=== PATIENT | female | born 1945 | race Caucasian/White ===

== ENCOUNTER 2017-11-12 01:13 | Outpatient (CLI) | payer MEDICARE, BC, SELFPAY ==
--- NOTE | 2017-11-12 17:50 | DI.RAD_ITS ---
SYMPTOM/DIAGNOSIS: BILAT LEG PAIN, LT HIP PAIN, M79.604 BILATERAL HIPS AND PELVIS: Comparison is made with 09/01/17. There is mild narrowing of the joint spaces of the hips bilaterally. The hip joints are otherwise well maintained. The bones are intact and normally mineralized. The sacroiliac joints and symphysis pubis appear intact and unremarkable. Stable degenerative changes are seen in the lower lumbar spine. The soft tissues are unremarkable. IMPRESSION: Bilateral narrowing of the joint spaces of the hips. Stable degenerative changes seen in the lower lumbar spine.
== END 2017-11-12 01:33 ==
PROVIDERS: PCP Family Medicine; Visit Provider Family Medicine
DX: M79.604 Pain in right leg (principal); M79.605 Pain in left leg; M25.552 Pain in left hip; M47.816 Spondylosis without myelopathy or radiculopathy, lumbar region
CPT/HCPCS: 73521

== ENCOUNTER 2017-12-16 01:03 | Outpatient (CLI) | payer MEDICARE, BC, SELFPAY ==
--- NOTE | 2017-12-16 14:42 | DI.MRI_ITS ---
SYMPTOMS/DIAGNOSIS: LOW BACK PAIN AND BILATERAL LEG PAIN, M79.604, M79.605 LUMBAR SPINE: Routine noncontrast examination was performed. The conus medullaris has a normal location. At L5-S1, there is disc desiccation. There is a very small central disc herniation. No significant central spinal canal or neural foraminal stenosis is seen. At L4-L5, there is disc desiccation. There is a diffuse disc bulge. There are hypertrophic changes of the facets and ligamentum flavum, causing moderately severe central spinal canal stenosis. Mild bilateral neural foraminal narrowing is seen, but no compression of the exiting nerve roots is noted. At L3-L4, there is disc desiccation. There is a diffuse disc bulge. There are hypertrophic changes of the facets and ligamentum flavum, causing marked central spinal canal stenosis. There is moderate bilateral neural foraminal stenosis present with minimal impingement upon the exiting nerve roots bilaterally. At L2-L3, there is a diffuse disc bulge. There are hypertrophic changes of the facets. No significant central spinal canal stenosis is seen. There is mild narrowing of the neural foramina bilaterally, but no compression of the exiting nerve roots is seen. Small osteophytes and mild endplate degenerative signal changes are noted. At L1-L2, there is a diffuse disc bulge. Mild narrowing of the central spinal canal is noted. No significant neural foraminal stenosis is present. Incidental note is made of right renal cysts. IMPRESSION: Multilevel degenerative changes in the lumbar spine resulting multilevel central spinal canal neural foraminal stenosis. The findings are most marked at L3-L4 and L4-L5.
== END 2017-12-16 01:23 ==
PROVIDERS: PCP Family Medicine; Visit Provider Family Medicine
DX: M79.604 Pain in right leg (principal); M79.605 Pain in left leg; M54.5 Low back pain; M51.27 Other intervertebral disc displacement, lumbosacral region; M48.07 Spinal stenosis, lumbosacral region
CPT/HCPCS: 72148

== ENCOUNTER 2018-04-02 00:33 | Outpatient (CLI) | payer MEDICARE, BC, SELFPAY ==
--- NOTE | 2018-04-02 08:55 | DI.MAMMO_ITS ---
SYMPTOM/DIAGNOSIS: SCREENING, Z12.31 MAMMOGRAMS: Mammograms were interpreted according to the usual protocol including computer analysis with CAD system, tomosynthesis and C view imaging. The breast tissue is of moderate radiodensity. There is no dominant mass. There are no suspicious calcifications. There is however a question regarding interval development of one or possibly two small areas of nodularity in the lateral portion of the left breast and further evaluation with craniocaudad compression spot films and ultrasound is recommended to rule out the possibility of malignancy. IMPRESSION: Category 0. Breast density, category B. Further evaluation with compression spot films and ultrasound. SA ASSESSMENT OF FINDINGS: Incomplete: Needs additional imaging evaluation. Category 0. Patient will receive a letter notifying them of these results. BI-RADS category B. There are scattered areas of fibroglandular density.
== END 2018-04-02 00:53 ==
PROVIDERS: PCP Family Medicine; Visit Provider Family Medicine
DX: Z12.31 Encounter for screening mammogram for malignant neoplasm of breast (principal); R92.8 Other abnormal and inconclusive findings on diagnostic imaging of breast
CPT/HCPCS: 77063; 77067

== ENCOUNTER 2018-04-09 01:25 | Outpatient (CLI) | payer MEDICARE, BC, SELFPAY ==
--- NOTE | 2018-04-09 10:42 | DI.MAMMO_ITS ---
SYMPTOM/DIAGNOSIS: F/U NODULARITY ON MAMMO RIGHT BREAST ADDITIONAL VIEWS: Additional images are interpreted according to the usual protocol including tomosynthesis and 2D imaging. The exam was performed for a questioned area of nodularity in the lateral left breast on the CC view. No suspicious masses or suspicious microcalcifications are seen. IMPRESSION: Category 1B, negative mammogram. Yearly screening mammography is recommended. SA ASSESSMENT OF FINDINGS: Negative. Category 1. Patient will receive a letter notifying them of these results. BI-RADS category B. There are scattered areas of fibroglandular density.
== END 2018-04-09 01:45 ==
PROVIDERS: PCP Family Medicine; Visit Provider Family Medicine
DX: Z12.31 Encounter for screening mammogram for malignant neoplasm of breast (principal); R92.8 Other abnormal and inconclusive findings on diagnostic imaging of breast; N64.59 Other signs and symptoms in breast
CPT/HCPCS: 77063; 77067

== ENCOUNTER → 2018-06-08 08:29 | Outpatient (BNVA) | payer MEDICARE, BC, SELFPAY | PROVIDERS: PCP Family Medicine; Referring Provider Family Medicine; Visit Provider Physical Therapy Assistant | DX: Z12.11 Encounter for screening for malignant neoplasm of colon (principal); Z86.018 Personal history of other benign neoplasm; I10 Essential (primary) hypertension ==

== ENCOUNTER 2018-07-03 07:56 | Day surgery (SDC) | payer MEDICARE, BC, SELFPAY ==
[2018-07-03 08:19] VITALS: BP 146/86; PULSE 78; RESP 18; TEMP 35.9; O2SAT 98
[2018-07-03] MEDS: Lactated Ringers 1,000 ML 80 ML IV (08:39)
--- NOTE | 2018-07-03 09:58 | W.PM.ENDDOP ---
Date of service: 07/03/18 Time of Service: 10:33 Endoscopy Report DATE OF PROCEDURE: 07/03/18 PRE-OP DIAGNOSIS: serrated adnemoma w/ dysplasia POST-OP DIAGNOSIS: other (cecal mass- flat 2cm lesion. mult bx taken mild diverticuli) PROCEDURE: CE and Bx SURGEON: Yessi Alejandro ANESTHESIA: GETA ESTIMATED BLOOD LOSS: 3 PATHOLOGY: other COMPLICATIONS: None DISPOSITION: same day PREP: Miralax COLONOSCOPY RETRACTION TIME: 13 mins PROCEDURE DESCRIPTION: After informed consent was obtained the patient was taken to the procedure room and placed in a left decubitous position. Monitors were applied and a time out was done. The patients name, date of , procedure, allergies to medications and metal in their body was reviewed. The patient was then sedated. Once sedated and comfortable a rectal exam was done. External exam was ext hemorrhoids. Internal exam revealed a normal sphincter tone and no palpable masses. The scope was then introduced and retrofelexed. no internal hemorrhoids were identified. The scope was then advanced to the cecum w/ mild difficulty. The TI and appendiceal orifice were identified. The prep was good . The scope was then slowly retracted over 13 minutes back into the rectum. She has a approx 2cm mass in cecum- very flat adn not on any type of stalk. Previous bx did show dysplasia and there is concern for cancer in this lesion. Is not amendable to endoscopic removal at this time. We will see what the bx show. High concern that this is a cancerous lesion. mult bx done/specimin is retrieved. the lesion is very friable and bleeds readily. Again mild diverticular Dx w/ no sign s of bleeding or infection. The scope was removed and the patient was woken up and taken back to Same day surgery in stable condition. The patient tolerated the procedure well and there were no immediate complications. pt will f/u in office in 1 wks time
--- NOTE | 2018-07-03 10:08 | BOWEL_PTH ---
PATIENT: Kae Pederson LOC: [facility] U#:[id number] AGE/SX: 72/F ROOM: RE07/03/[address]: Yessi Alejandro : 1945 BED: DIS: 07/03/2018 SPEC #: [id number] RECD: 07/03/18 12:01 STATUS: KATIA RE #: [id number] WANG: 07/03/18 10:[address]: Yessi Alejandro DEPT: Surgical Specimen RECD BY: Shiv Hilario ENTERED: 07/03/18 12:04 SP TYPE: Bowel OTHR DR: Rowan Lopez MD, DC Tissues: 1 - BIOPSY BOWEL Procedures: GROSS AND MICRO LEVEL 4 Comments: [id number]
--- NOTE | 2018-07-03 10:39 | PDOC.DSDIS_ITS ---
Discharge Plan Disposition Patient Disposition: HOME Condition: Good Discharge Details Attending Provider: Yessi Bobby Primary Care Provider: Rowan Lopez Home Meds and New Rx's Prescriptions: Continued magnesium amino acid chelate 100 mg tablet 500 mg PO DAILY RF: 0 amlodipine [Norvasc] 5 mg tablet 5 mg PO QAM Qty: 90 RF: 4 acetaminophen [Tylenol] 325 mg tablet 650 mg PO HS PRNRF: 0 bisacodyl [Dulcolax (bisacodyl)] 5 mg tablet,delayed release (DR/EC) 5 mg PO ONCE Qty: 4 RF: 0 multivitamin 1 EACH tablet 1 ea PO DAILY RF: 0 Little Remedies Cough-Immune 0.7-3 gram/7.5 mL liquid 5 ml PO DAILY RF: 0 Discontinued polyethylene glycol 3350 17 gram/dose powder 238 g PO ONCE Qty: 238 RF: 0 aspirin [Aspirin Low-Strength] 81 MG tablet,chewable 81 mg PO DAILY PRNRF: 0 Discharge Instructions Additional Instructions: Findings: diverticular dx- mild no active bleeding/or infection polyp in cecum has grown. Bx taken. not amendable to removal secondary to size. awaiting bx results. Follow up: F/u in office w/ Dr. bobby in 1o days No ASA/NSAIDs for 2 wks Please call if you develop: fevers >101.5 Nausea or Vomiting Abdominal pain that is not transient DAY SURGERY UNIT POST COLONOSCOPY INSTRUCTIONS 1. Because there will be medication in your system for the next 24 hours, you may feel a little sleepy. Your coordination will be affected. Therefore: a. Do not drive or operate dangerous equipment for 24 hours. b. Do not drink alcohol beverages for 24 hours (not even beer). c. Plan to go home and rest for the day. 2. Generally there are no restrictions on your activity after a day or so has gone by, but you may feel a bit fatigued for a few days. 3 After you arrive home you may have a light meal and return to a normal diet as you can tolerate it without feeling sick to your stomach. 4. After surgery, you may feel pain or discomfort. This should be only transient, but if it persists please contact your doctor. 5. If there are any questions regarding the findings of your procedure, please feel free to contact your doctor. 6. If you are unable to contact your doctor with a problem, contact the [facility] at [phone]. 5. Continue all your regular medications unless directed otherwise. I understand the above instructions and have no questions. Signature of Patient or Responsible Adult Escort Date/Time Name of Responsible Adult Escort Signature of Nurse Date/Time Activity:: no heavy lifting or strenuous acitivty x 24 hrs Diet:: sm lt meals x 24 hrs Discharge Orders Discharge Orders: Discharge Order (Routine); Ordered 07/03/18 Ordered By: Yessi Bobby DS: Diagnosis Discharge Diagnosis (1) Dysplastic polyp of colon: Status: Acute (2) Diverticula of colon: Status: Acute
[2018-07-03 11:02] VITALS: BP 134/84; PULSE 70; RESP 16; TEMP 36; O2SAT 98
== END 2018-07-03 11:40 | disposition home or self-care (01) ==
PROVIDERS: PCP Family Medicine; Visit Provider Surgery
PROC: 0DJD8ZZ Inspection of Lower Intestinal Tract, Via Natural or Artificial Opening Endoscopic (ICD-10-PCS; CPT 45378; principal; 2018-07-03 10:30)
DX: Z12.11 Encounter for screening for malignant neoplasm of colon (principal); D12.0 Benign neoplasm of cecum; Z86.010 Personal history of colon polyps; I10 Essential (primary) hypertension; K21.9 Gastro-esophageal reflux disease without esophagitis
CPT/HCPCS: 45380; 88305

== ENCOUNTER → 2018-07-13 09:16 | Outpatient (BNVA) | payer MEDICARE, BC, SELFPAY | PROVIDERS: PCP Family Medicine; Referring Provider Family Medicine; Visit Provider Surgery | DX: Z48.815 Encounter for surgical aftercare following surgery on the digestive system (principal); K63.5 Polyp of colon; K59.09 Other constipation; I10 Essential (primary) hypertension | CPT/HCPCS: 99213 ==

== ENCOUNTER 2018-09-22 11:02 | Outpatient (CLI) | payer MEDICARE, BC, SELFPAY ==
[2018-09-22 12:31] LABS: ALT 31 U/L (12-78); AST 23 U/L (15-37); Albumin 3.9 g/dL (3.4-5.0); Alkaline Phosphatase 110 U/L (46-116); Anion Gap 8.1 mmol/L (3-11); BUN 11 mg/dL (7-18); Bilirubin, Total 0.6 mg/dL (0.2-1.0); CO2 30.9 mmol/L (21.0-32.0); CREATININE 0.66 mg/dL (0.55-1.02); Calcium 9.3 mg/dL (8.5-10.1); Chloride 104 mmol/L (98-107); Glucose 106 mg/dL (70-100); Magnesium 2.5 mg/dL (1.8-2.4); Potassium 4.2 mmol/L (3.5-5.1); Sodium 143 mmol/L (136-145); Total Protein 7.4 g/dL (6.4-8.2)
== END 2018-09-22 11:22 ==
PROVIDERS: PCP Family Medicine; Visit Provider Family Medicine
DX: I10 Essential (primary) hypertension (principal)
CPT/HCPCS: 36415; 80053; 83735

== ENCOUNTER 2019-05-03 01:21 | Outpatient (CLI) | payer MEDICARE, SELFPAY ==
--- NOTE | 2019-05-03 09:30 | DI.MAMMO_ITS ---
EXAM: MG MAMMO SCREENING CLINICAL HISTORY: screening, Z12.39 TECHNIQUE: Mammograms were interpreted according to the usual protocol including computer analysis w [employer] CAD system, tomosynthesis and C-view imaging. COMPARISON: March 2018 FINDINGS: Breasts are of moderate density with fairly symmetrical distribution of fibroglandular tissue. No do minant mass or clumped microcalcification is identified in either breast. Current examination is com pared with previous examinations including March 2018 and there has been no gross interval change i n appearance in comparison with previous studies. IMPRESSION: No specific evidence of malignancy at this time. Routine screening examinations are suggested at year ly intervals in this age group according to the ACS/ACR guidelines. Category 1, breast density catego ester Ordoñez.
== END 2019-05-03 01:41 ==
PROVIDERS: PCP Family Medicine; Visit Provider Family Medicine
DX: Z12.31 Encounter for screening mammogram for malignant neoplasm of breast (principal)
CPT/HCPCS: 77063; 77067

== ENCOUNTER 2019-09-28 09:33 | Outpatient (CLI) | payer MEDICARE, SELFPAY ==
[2019-09-28 13:06] LABS: ALT 28 U/L (14-59); AST 24 U/L (15-37); Albumin 3.8 g/dL (3.4-5.0); Alkaline Phosphatase 115 U/L (46-116); Anion Gap 6.9 mmol/L (3-11); BUN 10 mg/dL (7-18); Bilirubin, Total 0.6 mg/dL (0.2-1.0); CO2 29.1 mmol/L (21.0-32.0); CREATININE 0.66 mg/dL (0.55-1.02); Calcium 9.2 mg/dL (8.5-10.1); Chloride 104 mmol/L (98-107); Glucose 99 mg/dL (74-106); Potassium 4.2 mmol/L (3.5-5.1); Sodium 140 mmol/L (136-145); Total Protein 7.4 g/dL (6.4-8.2)
== END 2019-09-28 09:53 ==
PROVIDERS: PCP Family Medicine; Visit Provider Family Medicine
DX: I10 Essential (primary) hypertension (principal)
CPT/HCPCS: 36415; 80053

== ENCOUNTER 2020-04-06 02:45 | Outpatient (CLI) | payer MEDICARE, SELFPAY ==
[2020-04-06 12:33] LABS: ALT 24 U/L (14-59); AST 21 U/L (15-37); Albumin 3.8 g/dL (3.4-5.0); Alkaline Phosphatase 113 U/L (46-116); Anion Gap 4.3 mmol/L (3-11); BUN 10 mg/dL (7-18); Bilirubin, Total 0.5 mg/dL (0.2-1.0); CO2 30.7 mmol/L (21.0-32.0); CREATININE 0.7 mg/dL (0.55-1.02); Calcium 8.9 mg/dL (8.5-10.1); Chloride 105 mmol/L (98-107); Glucose 102 mg/dL (74-106); Potassium 4.3 mmol/L (3.5-5.1); Sodium 140 mmol/L (136-145); Total Protein 7.3 g/dL (6.4-8.2)
[2020-04-06 12:40] LABS: Hemoglobin A1C 5.7 % (<5.7)
== END 2020-04-06 03:05 ==
PROVIDERS: PCP Family Medicine; Visit Provider Family Medicine
DX: E11.9 Type 2 diabetes mellitus without complications (principal); I10 Essential (primary) hypertension; R63.1 Polydipsia
CPT/HCPCS: 36415; 80053; 83036

== ENCOUNTER 2020-07-11 01:00 | Outpatient (CLI) | payer MEDICARE, SELFPAY ==
--- NOTE | 2020-07-11 06:15 | DI.MAMMO_ITS ---
Exam(s) MAMMO SCREENING EXAM: MAMMO SCREENING CLINICAL HISTORY: screening,Z12.30 TECHNIQUE: Bilateral full field digital CC and MLO mammographic images were obtained with 3D tomosyn thesis and utilizing computer aided detection (CAD). COMPARISON: Available for comparison. FINDINGS: Masses/Architectural Distortion: There is no change in the 7 mm nodule in the central upper left erin st best appreciated on the MLO view. No suspicious masses are seen. No areas of architectural disto rtion are present. Microcalcifications: No suspicious pleomorphic-type are seen. Skin Thickening/Nipple Retraction: None. IMPRESSION: 1. No significant interval change with no specific features of malignancy noted. 2. Unless there is more urgent need, screening mammography is recommended, as per [place] [employer] guidelines. BI-RADS Category 2 - Benign Findings Breast Density - Category B - Scattered areas of fibroglandular density Breast density category C or D implies that the patient has dense breast tissue. Dense breast tissue is very common and is not abnormal but dense breast tissue can make it harder to find cancer on a ma mmogram. Also, dense breast tissue may increase their breast cancer risk. This information about the result of the mammogram report was provided to the patient to raise their awareness. Use this report when you speak with the patient about their risks for breast cancer, which includes their family hist ory. At that time, you may recommend for more screening tests (Ultrasound or MRI) as they might be us eful based on their risk. A negative radiographic report should not delay biopsy if a dominant or clinically suspicious mass is present. Up to ten percent of cancers are not identified on mammography. A negative report may reinforce clinical impression. Adenosis and dense breasts may obscure an underlying neoplasm. False positive reports average 6 to 10%. Patient will receive a letter notifying them of these results.
== END 2020-07-11 01:20 ==
PROVIDERS: PCP Family Medicine; Visit Provider Family Medicine
DX: Z12.31 Encounter for screening mammogram for malignant neoplasm of breast (principal)
CPT/HCPCS: 77063; 77067

== ENCOUNTER 2021-08-13 18:15 | Outpatient (CLI) | payer MEDICARE, SELFPAY ==
[2021-08-13 17:22] LABS: Hemoglobin A1C 5.6 % (<5.7)
[2021-08-13 18:01] LABS: ALT 23 U/L (14-59); AST 19 U/L (15-37); Albumin 3.8 g/dL (3.4-5.0); Alkaline Phosphatase 132 U/L (46-116); Anion Gap 8.2 mmol/L (3-11); BUN 11 mg/dL (7-18); Bilirubin, Total 0.3 mg/dL (0.2-1.0); CO2 30.8 mmol/L (21.0-32.0); CREATININE 0.7 mg/dL (0.55-1.02); Chloride 102 mmol/L (98-107); Glucose 86 mg/dL (74-106); Sodium 141 mmol/L (136-145); Total Protein 7.5 g/dL (6.4-8.2)
== END 2021-08-13 18:16 | disposition home or self-care (01) ==
LOC: LBO 18:16
PROVIDERS: PCP Family Medicine; Visit Provider Family Medicine
DX: E11.9 Type 2 diabetes mellitus without complications (principal); I10 Essential (primary) hypertension
CPT/HCPCS: 36415; 80053; 83036

== ENCOUNTER 2022-04-25 00:22 | Outpatient (CLI) | payer MEDICARE, SELFPAY ==
--- NOTE | 2022-04-25 07:00 | DI.MAMMO_ITS ---
Exam(s) MAMMO SCREENING EXAM: MAMMO SCREENING CLINICAL HISTORY: screening,z12.39. TECHNIQUE: Bilateral full field digital CC and MLO mammographic images were obtained with 3D tomosyn thesis and utilizing computer aided detection (CAD). COMPARISON: Prior mammograms dating back to 2013 were reviewed, most recent being July 2020. FINDINGS: There are no new significant findings in the right breast. In the left breast the previously described small benign-appearing nodule again noted, unchanged from 2014 therefore benign. There is slight prominence of retroareolar ducts again noted on the left side. However, there is sli ght increase in microcalcifications associated with this duct, located approximately 4 cm in from the nipple. Additional imaging required. There is no significant architectural distortion nor skin thickening-retraction. IMPRESSION: 1. No radiographic evidence of malignancy in the right breast. 2. Left breast findings as above. Recommend spot compression 2D and 3D views of the retroareolar re gion as well as breast ultrasound. BI-RADS Category 0 - Assessment Incomplete: Need additional imaging evaluation Breast Density - Category B - Scattered areas of fibroglandular density Breast density Category C or D implies that the patient has dense breast tissue. Dense breast tissue can make it harder to find cancer on a mammogram. Dense breast tissue is also associated with an incr eased risk of breast cancer. This information about the result of the mammogram report was provided to the patient to raise their awareness. Use this report when you speak with the patient about their risks for breast cancer, which includes their family history. At that time, you may recommend additional screening tests (Ultrasoun d or MRI) as these tests may add significant information. A negative radiographic report should not delay biopsy if a dominant or clinically suspicious mass is present. Up to ten percent of cancers are not identified on mammography. A negative report may reinforce clinical impression. Adenosis and dense breasts may obscure an underlying neoplasm. False positive reports average 6 to 10%. Patient will receive a letter notifying them of these results.
== END 2022-04-25 00:42 ==
LOC: DI 00:22
PROVIDERS: PCP Family Medicine; Visit Provider Family Medicine
DX: Z12.31 Encounter for screening mammogram for malignant neoplasm of breast (principal)
CPT/HCPCS: 77063; 77067

== ENCOUNTER 2022-04-26 00:30 | Outpatient (CLI) | payer MEDICARE, SELFPAY ==
--- NOTE | 2022-04-26 | DI.MAMMO_ITS ---
Exam(s) MG MAMMO SCREEN CALL BACK UNI US BREAST LT LIMITED EXAM: MG MAMMO SCREEN CALL BACK UNI CLINICAL HISTORY: F/U ABNL MAMMO,04/25,PROMINENCE DUCTS,INCRASE IN CALCIFICATIONS. TECHNIQUE: Craniocaudal and mediolateral oblique spot compression magnification digital Mammography views of the left breast followed by left breast ultrasound. COMPARISON: MG L. SPOT - SAME DAY DIGITAL from 04/09/2013 MG SCREENING JOCELYN MAMMO W/CAD DIGI from 04/09/2013 US LEFT BREAST ULTRASOUND {[id number]} from 07/20/2014 MG L. Spot - Same Day from 07/20/2014 MG Screening Bilat Mammo from 07/20/2014 MG Diagnostic Left Mammo from 01/24/2015 MG Screening Bilat Mammo from 09/05/2016 MG MG mammo screening from 04/02/2018 MG MG mammo screen call back UNI from 04/09/2018 MG MG MAMMO SCREENING from 05/03/2019 MG MG MAMMO SCREENING from 07/11/2020 MG MG MAMMO SCREENING from 04/25/2022 US US BREAST LT LIMITED from 04/26/2022 FINDINGS: Mammography/Tomosynthesis: Masses/Architectural Distortion: Stable appearance of dilated duct in the subareolar region. Microcalcifictions: Scattered coarse calcifications. No suspicious pleomorphic-type are seen. Skin Thickening/Nipple Retraction: Stable mild nipple retraction. No skin thickening. Left breast US: Echotexture: Normal appearance of the glandular tissue. Shadowing: No suspicious foci. Cyst: None. Solid lesions: None seen. Ductal dilation: Dilated duct in the subareolar region measuring 7 millimeters maximally in diameter. No intraductal mass visible. No significant intraductal debris. IMPRESSION: 1. No evidence of malignancy is noted. 2. Unless there is more urgent need, follow-up screening mammography is recommended, as per [place] [employer] guidelines. 3. The findings were discussed with the patient on the date of the examination. BI-RADS Category 2 - Benign Findings Breast Density - Category B - Scattered areas of fibroglandular density A mammogram that demonstrates density of C or D indicates the patient's breast tissue is dense. Dense breast tissue is very common and is not abnormal, but dense breast tissue can make it harder to find cancer on a mammogram. Also, dense breast tissue may increase their breast cancer risk. This informa tion about the result of the mammogram report was provided to the patient to raise their awareness. U se this report when you speak with the patient about their risks for breast cancer, which includes th eir family history. At that time, you may recommend for more screening tests (Ultrasound or MRI) as t hey might be useful based on their risk. A negative radiographic report should not delay biopsy if a dominant or clinically suspicious mass is present. Up to ten percent of cancers are not identified on mammography. A negative report may reinforce clinical impression. Adenosis and dense breasts may obscure an underlying neoplasm. False positive reports average 6 to 10%. Patient will receive a letter notifying them of these results.
== END 2022-04-26 00:50 ==
LOC: DI 00:31
PROVIDERS: PCP Family Medicine; Visit Provider Family Medicine
DX: Z12.31 Encounter for screening mammogram for malignant neoplasm of breast (principal); R92.8 Other abnormal and inconclusive findings on diagnostic imaging of breast
CPT/HCPCS: 76642; 77063; 77067

== ENCOUNTER 2022-10-16 02:44 | Outpatient (CLI) | payer MEDICARE, SELFPAY ==
[2022-10-16 12:38] LABS: ALT 24 U/L (14-59); AST 30 U/L (15-37); Albumin 3.7 g/dL (3.4-5.0); Alkaline Phosphatase 111 U/L (46-116); Anion Gap 9.1 mmol/L (3-11); BUN 8 mg/dL (7-18); Bilirubin, Total 0.7 mg/dL (0.2-1.0); CO2 29.9 mmol/L (21.0-32.0); CREATININE 0.7 mg/dL (0.55-1.02); Calcium 9.2 mg/dL (8.5-10.1); Chloride 106 mmol/L (98-107); Estimated GFR 90.14 (mL/min/1.73m2); Glucose 110 mg/dL (74-106); Sodium 145 mmol/L (136-145); Total Protein 7.9 g/dL (6.4-8.2)
== END 2022-10-16 02:45 | disposition home or self-care (01) ==
LOC: LOS 02:44
PROVIDERS: PCP Family Medicine; Visit Provider Family Medicine
DX: I10 Essential (primary) hypertension (principal)
CPT/HCPCS: 36415; 80053

== ENCOUNTER → 2022-10-24 11:12 | Outpatient (BNVA) | payer MEDICARE, SELFPAY | PROVIDERS: PCP Family Medicine; Referring Provider Family Medicine; Visit Provider Physical Therapy Assistant | DX: Z12.11 Encounter for screening for malignant neoplasm of colon (principal); Z86.010 Personal history of colon polyps ==

== ENCOUNTER 2022-11-07 10:05 | Day surgery (SDC) | payer MEDICARE, SELFPAY ==
--- NOTE | 2022-11-06 18:52 | W.ANESPRE ---
General Info Date of Service Date Performed: 11/07/22 Height: 5 ft 4 in Weight: 82.781 kg Body Mass Index (BMI): 31.3 Surgical Procedure: Operation Date: 11/07/22 12:20 Proposed Procedure Side Surgeon p Vimal Major MD Meds Allergies and Home Medications Allergies Allergy/AdvReac Type Severity Reaction Status Date / Time bacitracin AdvReac Mild rash Verified 11/07/22 10:51 [From Neosporin ([id number])] bacitracin zinc AdvReac Mild rash Verified 11/07/22 10:51 [From Neosporin ([id number])] latex AdvReac Mild rash Verified 11/07/22 10:51 neomycin sulfate AdvReac Mild rash Verified 11/07/22 10:51 [From Neosporin ([id number])] polymyxin B AdvReac Mild rash Verified 11/07/22 10:51 [From Neosporin ([id number])] Home Medication Medication Instructions Recorded multivitamin 1 ea PO DAILY 08/31/12 acetaminophen 325 mg tablet 650 mg PO HS PRN 01/12/18 (Tylenol) elderberry fruit 0.7 gram-honey 3 7.5 ml PO DAILY 04/03/20 gram/7.5 mL oral liquid amlodipine 5 mg tablet (Norvasc) 5 mg PO HS #90 tab-caps 04/11/22 Current Visit Medications: Current Medications Generic Name Dose Route Start Last Admin Trade Name Freq PRN Reason Stop Dose Admin Ringer's Solution 1,000 mls @ 80 mls/hr 11/07/22 06:00 IV 12/06/22 23:59 INFUSION MARGOT IV Miscellaneous Supplies 1 each 11/07/22 06:00 Iv Access IV 12/06/22 23:59 DIRECTED MARGOT Sodium Chloride 0 ml 11/07/22 06:00 Normal Saline Flush 10 Ml Syr IV 12/06/22 23:59 PRN PRN Sodium Chloride 0 ml 11/07/22 06:00 Normal Saline 10 Ml Vial IJ 12/06/22 23:59 DIRECTED PRN Sterile Water 0 ml 11/07/22 06:00 Water,Injection,Sterile 10 Ml Vial IJ 12/06/22 23:59 DIRECTED PRN PFSH Active Problems Active Problems: Problem Status Onset Code Adenomatous polyp of sigmoid colon 04/03/17 D12.5 Esophageal reflux K21.9 Essential hypertension 01/25/13 I10 Increased body mass index R63.8 Spinal stenosis of lumbar region with neurogenic claudication 11/06/17 M48.062 Medical History Medical History Adenomatous colon polyp 07/03/18 Dr Yessi Alejandro, [facility], Villous, Tubulovillous, sessile serrated adenomas, repeat 3 years. mg Bilateral leg pain (11/06/17) Cataract Constipation Constipation (04/11/14) CHRONIC Contact dermatitis Disorder of brain Pt. states she had an MRI and there was a white spot, but nothing ever came of it, and I never asked more about Diverticula of colon Dysplastic polyp of colon Eczema Encounter for screening colonoscopy Esophageal reflux Excessive thirst Heme positive stool (03/13/17) 2 out of 3 heme cards were positive History of wrist fracture left wrist - with hardware HTN (hypertension) Stress due to illness of family member (03/04/17) Ventricular arrhythmia Medical History Comments:: Pt. states he blood vessel burst in her eye, states crispin blood pressure was 123/78. Surgical History Surgical History Colonoscopy - MAC (03/27/17) History of bilateral ligation of fallopian tubes Hysterectomy, Laproscopic Ligation of fallopian tube (~1975) Status post laparoscopic hysterectomy Status post tonsillectomy and adenoidectomy Tonsillectomy and adenoidectomy (~1952) Tobacco Smoking/Tobacco Use Status: Never Passive smoking exposure: Yes Second hand exposure: Yes Alcohol Alcohol Intake: never Substance Use Substance use: Never Substance use type: does not use Vital Signs and Lab Results Vital Signs Most Recent Vital Signs in EMR: Temp Pulse Resp BP Pulse Ox 36.6 C 94 H 18 164/93 H 99 11/07/22 10:43 11/07/22 10:43 11/07/22 10:43 11/07/22 10:43 11/07/22 10:43 Lab Results Blood Type / Crossmatch: No Data to Display Complete Blood Count: No Data to Display Complete Metabolic Panel: Sodium 145 mmol/L (136-145) 10/16/22 09:55 Potassium 4.0 mmol/L (3.5-5.1) 10/16/22 09:55 Chloride 106 mmol/L (98-107) 10/16/22 09:55 Carbon Dioxide 29.9 mmol/L (21.0-32.0) 10/16/22 09:55 BUN 8 mg/dL (7-18) 10/16/22 09:55 Creatinine 0.7 mg/dL (0.55-1.02) 10/16/22 09:55 Est GFR (CKD-EPI 2020) 90.14 (mL/min/1.73m2) 10/16/22 09:55 Calcium 9.2 mg/dL (8.5-10.1) 10/16/22 09:55 Albumin 3.7 g/dL (3.4-5.0) 10/16/22 09:55 Glucose 110 mg/dL (74-106) H 10/16/22 09:55 Liver Function Panel: Alanine Aminotransferase (ALT/SGPT) 24 U/L (14-59) 10/16/22 09:55 Aspartate Amino Transf (AST/SGOT) 30 U/L (15-37) 10/16/22 09:55 Coagulation Panel: No Data to Display Cardiac Panel: No Data to Display Arterial Blood Gas: No Data to Display Venous Blood Gas: No Data to Display Pancreas Panel: No Data to Display Thyroid Panel: No Data to Display Infectious Disease: No Data to Display Blood Cultures: No Data to Display Toxicology Panel: No Data to Display Imaging and Studies Imaging and Studies Study information below may be from another EMR and interpreted by another provider. Please see original notes in EMR for more complete details. Stress Test Summary: 07/22: 7 METS, no defects, EF 72%, negative ECG. Anesthesia Assessment and Plan Anesthesia History Personal History: No History of Anesthesia Complications Family History: No Family History of Anesthesia Complications Exercise Tolerance Exercise Tolerance: Metabolic Equivalents>4 Cardiac & Pulmonary Exam Cardiac Exam: Normal S1/S2 Heart Sounds Pulmonary Exam: Clear Bilateral Breath Sounds Implantable Cardiac Device Does patient have a Pacemaker or an ICD?: No Airway Exam Known Difficult Airway: No Mallampati Class: 3 Mouth Opening: Narrow (< 3cm) Thyromental Distance: Greater than 3 cm Neck Range of Motion: Full ROM Neck Circumference: Normal Teeth Condition: Normal Dentition, Removable Dentures/Plates Upper and Removable Dentures/Plates Lower ASA Classification ASA Score: ASA 2 Emergency Case?: No NPO Status NPO Status: NPO Clears >2 hours, Solids >8 hours Anesthesia Plan Resuscitation Status: Full Code Anesthesia Technique: General Anesthesia Airway Planned: Natural Airway Monitors Used: Standard Monitors Preoperative Comments:: 76 yo male for colo. Sig PMHx: GERD (only with fried foods), HTN (amlodipine), lumbar spinal stenosis. Previous Anes: - APD/colo, no issues - colo, prop, natural airway, no issues x 2.
--- NOTE | 2022-11-06 22:58 | W.PM.DSUDISC ---
Date of service: 11/07/22 Time of Service: 13:16 Discharge Plan Disposition Patient Disposition: Home Condition: Good Discharge Details Reason For Visit: Screening colonoscopy Attending Provider: Michael Major Primary Care Provider: Rowan Lopez Home Meds and New Rx's Prescriptions: Continued elderberry fruit-honey 0.7-3 gram/7.5 mL liquid 7.5 ml PO DAILY acetaminophen [Tylenol] 325 mg tablet 650 mg PO HS PRN amlodipine [Norvasc] 5 mg tablet 5 mg PO HS Qty: 90 6RF multivitamin 1 EACH tablet 1 ea PO DAILY Discontinued polyethylene glycol 3350 17 gram/dose powder 238 g PO ONCE Qty: 238 0RF Rx Instructions: take per colonoscopy instructions bisacodyl [Dulcolax (bisacodyl)] 5 mg tablet,delayed release (DR/EC) 5 mg PO ONCE Qty: 4 0RF Rx Instructions: take per colonoscopy instructions Discharge Instructions Instructions: Diverticulosis (GEN), Diverticulosis Diet (GEN) Additional Instructions: Kae, we were able to complete your colonoscopy today without any challenges. I did find a polyp in the cecum. This seems to be in a similar area to where they were detected before. I was able to remove the polyp today. I removed it completely. It will take a week or so to get the results from the pathology report. Based on your history, I suspect I would suggest another colonoscopy in 1 to 3 years, but lets see what the pathology report is before making any definitive plans. 1. If tolerated, consume a soft, low fiber diet for 1-2 days. 2. Do not drive, drink alcohol, operate machinery, make critical decisions, or do activities that require coordination or balance for 24 hours. 3. Because air was put into your colon during the procedure, expelling air from your rectum (passing gas or farting) is normal. 4. You may not have a bowel movement for 1-3 days because of the colonoscopy prep. This is normal. 5. Go directly to the emergency room if you notice any of the following: Develop chills (warm to touch), or if you have a thermometer and your temperature is above 101 Difficulty breathing or difficultly swallowing Persistent vomiting Severe abdominal pain, other than gas cramps Severe chest pain Black, tarry stools Any bleeding ? exceeding one tablespoon 6. Call your physician if the site where your intravenous was started becomes red, swollen, painful, and warm to touch. 7. Your physician has reviewed your pre-procedure medications. Please continue to take those medications as previously ordered. You will be given specific information/education regarding any changes to your medications before leaving. Stand Alone Forms: Anesthesia Discharge InstRoland Londono (DSU) Activity:: Activity as Tolerated Diet:: As Tolerated Discharge Orders Discharge Orders: Discharge Order (Routine); Ordered 11/06/22 Ordered By: Michael Major
--- NOTE | 2022-11-06 23:00 | W.COLOREPORT ---
Date of service: 11/07/22 Time of Service: 13:15 Colonoscopy Report Date of procedure: 11/07/22 Pre-op diagnosis general: Screening colonocsopy Post-op diagnosis procedure note: other (Cecal polyp) Procedure: Colonoscopy with polypectomy Surgeon: Michael Major Anesthesia Type: General:No Airway Estimated blood loss (mL): 5 Pathology: other (Polyp) Complications: None Disposition: same day Indications: Kae is a 76-year-old woman with past medical history that significant for an adenomatous polyp greater than 1 cm in size. She is here for her next screening colonoscopy. Prep: Miralax/Dulcolax Procedure Start Time: 12:31 Procedure End Time: 12:55 Retraction Time: 14 Findings: 0.5 cm periappendiceal sessile polyp, diverticulosis Procedure Description: After the induction of monitored anesthetic care, and with the patient in left lateral decubitus position, I began by performing an external anorectal exam.? Perineum and skin were normal, as was the anal verge.? There was evidence of external hemorrhoids.? Next, I performed a digital rectal exam.? I did not appreciate any abnormal findings.? Next, I advanced a colonoscope into the rectal vault.? I performed retroflexion.? This appeared normal.? Using insufflation, I then advanced the colonoscope beyond the rectal folds and into the sigmoid colon before advancing towards the cecum.? The quality of the prep was excellent.? The scope was noted to be in the cecum by identification of the ileocecal valve and appendiceal orifice.? Immediately adjacent to the appendiceal os was a 0.5 cm sessile polyp. I was able to gently elevated with a energized snare. Polypectomy was performed with cautery. There was minimal bleeding. A specimen was obtained. There was a small amount of residual tissue adjacent to the polypectomy site. This was obliterated with cautery. I then began withdrawing the colonoscope using repeated irrigation as necessary for full evaluation of the colonic mucosa. There was sigmoid diverticulosis. ?Once the scope was withdrawn to the level of the rectum, great care was taken to examine portions of the rectal folds.? Finally, the scope was withdrawn and the patient was brought to the same-day surgery recovery unit as the anesthetic wore off. ?The findings and instructions were shared with the patient prior to discharge.
[2022-11-07 10:43] VITALS: BP 164/93; PULSE 94; RESP 18; TEMP 36.6; O2SAT 99
[2022-11-07 11:20] VITALS: BMI 31.3
[2022-11-07] MEDS: Lactated Ringers 1,000 ML 80 ML IV (11:28)
--- NOTE | 2022-11-07 12:44 | BOWEL_PTH ---
PATIENT: Kae Pederson LOC: [facility] U#:[id number] AGE/SX: 76/F ROOM: RE11/07/[address]: Michael Major MD : 1945 BED: DIS: 11/07/2022 SPEC #: [id number] RECD: 11/07/22 13:27 STATUS: KATIA RE #: [id number] WANG: 11/07/22 12:[address]: Michael Major DEPT: Surgical Specimen RECD BY: Pamela Clarke ENTERED: 11/07/22 13:27 SP TYPE: Bowel OTHR DR: Rowan Lopez MD, DC Tissues: 1 - BIOPSY BOWEL Procedures: GROSS AND MICRO LEVEL 4 Comments: [id number]
[2022-11-07 13:02] VITALS: BP 141/71; PULSE 86; RESP 16; TEMP 36.3; O2SAT 99
--- NOTE | 2022-11-07 13:12 | W.ANESPOSTOP ---
Postoperative Evaluation Date, Time and Location Date Performed: 11/07/22 Time Performed: 13:12 Patient Location: Day Surgery Unit Vital Signs Most Recent Imported Vital Signs: Most Recent Vital Signs Temp Pulse Resp BP Pulse Ox 36.3 C L 86 16 141/71 H 99 11/07/22 13:02 11/07/22 13:02 11/07/22 13:02 11/07/22 13:02 11/07/22 13:02 Pain Score Most Recent Pain Score: Most Recent Pain Score Pain Level 0 11/07/22 13:02 Assessment Mental Status: Awake (Alert & Oriented to Patient Baseline) Airway and Respiratory Function: Patent airway with normal (patient baseline) respiratory exam Cardiovascular Function: Hemodynamically Stable Hydration Status: Adequately Hydrated Nausea & Vomiting: No Nausea or Vomiting Pain: Pt. Denies Any Pain Peripheral Nerve Block: Patient did not receive a nerve block
[2022-11-07 13:30] VITALS: BP 146/78; PULSE 86; RESP 16; TEMP 36.5; O2SAT 96
== END 2022-11-07 13:52 | disposition home or self-care (01) ==
PROVIDERS: PCP Family Medicine; Visit Provider Surgery
PROC: 0DJD8ZZ Inspection of Lower Intestinal Tract, Via Natural or Artificial Opening Endoscopic (ICD-10-PCS; CPT 45378; principal; 2022-11-07 12:15)
DX: Z12.11 Encounter for screening for malignant neoplasm of colon (principal); Z86.010 Personal history of colon polyps; D37.4 Neoplasm of uncertain behavior of colon; K57.30 Diverticulosis of large intestine without perforation or abscess without bleeding
CPT/HCPCS: 45385; 88305

== ENCOUNTER 2023-11-17 09:12 | Outpatient (CLI) | payer MEDICARE, SELFPAY ==
[2023-11-17 10:03] LABS: ALT 19 U/L (14-59); AST 24 U/L (15-37); Albumin 3.6 g/dL (3.4-5.0); Alkaline Phosphatase 108 U/L (46-116); Anion Gap 6.7 mmol/L (3-11); BUN 10 mg/dL (7-18); CO2 30.3 mmol/L (21.0-32.0); CREATININE 0.8 mg/dL (0.55-1.02); Calcium 9.3 mg/dL (8.5-10.1); Chloride 103 mmol/L (98-107); Estimated GFR 75.84 (mL/min/1.73m2); Glucose 105 mg/dL (74-106); Potassium 4.2 mmol/L (3.5-5.1); Sodium 140 mmol/L (136-145); Total Protein 7.8 g/dL (6.4-8.2)
[2023-11-17 10:05] LABS: Hemoglobin A1C 5.6 % (<5.7)
== END 2023-11-17 09:13 | disposition home or self-care (01) ==
LOC: LBO 09:12
PROVIDERS: PCP Family Medicine; Visit Provider Family Medicine
DX: E11.9 Type 2 diabetes mellitus without complications (principal); I10 Essential (primary) hypertension
CPT/HCPCS: 36415; 80053; 83036

== ENCOUNTER 2024-01-07 00:39 | Outpatient (CLI) | payer MEDICARE, SELFPAY ==
--- NOTE | 2024-01-07 06:30 | DI.CT_ITS ---
Exam(s) CT HEAD FACIAL WO EXAM: CT HEAD FACIAL WO CLINICAL HISTORY: fall,w19.XXXA. TECHNIQUE: Imaging Protocol: Axial computed tomography images with coronal and sagittal reformatted images were created and reviewed COMPARISON: No exams were available for comparison FINDINGS: CT Head: Ventricles and Extra axial spaces: Normal in size and morphology for the patient's age. Hemorrhage: None. Cerebral parenchyma: Normal. Midline shift: None. Brainstem/Cerebellum: Normal. Calvarium: Normal. Visualized Paranasal sinuses/Mastoids: Clear. Soft Tissues: Unremarkable. CT Face: Facial Bones: No fracture is noted in facial bones. Sinuses and Mastoids: Unremarkable. Globes, extraocular muscles, optic nerves and retrobulbar fat: Normal. Upper aerodigestive tract: Normal. Mandible and bilateral temporomandibular joints: No fracture. Degenerative changes at the temporoman dibular joints. Soft tissues: Normal. IMPRESSION: 1. No acute intracranial process. 2. No acute facial fracture. RADIATION DOSE DELIVERED: 1,313.8mGy.cm Total DLP DATA REPOSITORY: All CT scans at this facility are submitted to the National Radiology Data Registry (NRDR) Dose Index Registry (DIR) with the [employer] ([employer]). RADIATION OPTIMIZATION: All CT scans at this facility use at least one of these dose optimization te chniques: automated exposure control; mA and/or kV adjustment per patient size (includes targeted exa ms where dose is matched to clinical indication); or iterative reconstruction.
== END 2024-01-07 00:59 ==
LOC: DI 00:39
PROVIDERS: PCP Family Medicine; Visit Provider Family Medicine
DX: W19.XXXA Unspecified fall, initial encounter (principal); R51.9 Headache, unspecified
CPT/HCPCS: 70450; 70486

== ENCOUNTER 2024-05-04 14:59 | Outpatient (REF) | payer MEDICARE, SELFPAY | END 2024-05-04 15:00 | disposition home or self-care (01) | LOC: LBN 14:59 | PROVIDERS: PCP Family Medicine; Visit Provider Nurse Practitioner Family | DX: R30.0 Dysuria (principal) | CPT/HCPCS: 87077; 87086; 87186 ==

== ENCOUNTER 2024-07-15 00:57 | Outpatient (CLI) | payer MEDICARE, SELFPAY ==
--- NOTE | 2024-07-15 07:30 | DI.RAD_ITS ---
Exam(s) XR SHOULDER LT COMPLETE 2+V EXAM: XR SHOULDER LT COMPLETE 2+V CLINICAL HISTORY: left shoulder pain,m25.512,radicular arm pain lt arm, m79.2. TECHNIQUE: 2D digital imaging was performed. Three views. COMPARISON: No exams were available for comparison FINDINGS: BONES: No acute fracture is present. No bony destructive lesion is seen. There is spurring at the un dersurface of the acromion. JOINTS: No dislocation present. Mild spurring at the AC joint. Glenohumeral joint space is maintain ed and shows minimal glenoid spurring. SOFT TISSUE: Normal. IMPRESSION: Mild degenerative changes. DATA REPOSITORY: RADIATION DOSE DELIVERED:
--- NOTE | 2024-07-15 07:30 | DI.RAD_ITS ---
Exam(s) XR CERVICAL SPINE COMP 4-5V EXAM: XR CERVICAL SPINE COMP 4-5V CLINICAL HISTORY: left shoulder pain,radicular pain in arm, m79.2,m25.512. TECHNIQUE: 2D digital imaging was performed. COMPARISON: No exams were available for comparison FINDINGS: Six views No evidence of fracture, listhesis, nor offset of the spinal laminar line. No prevertebral soft tiss ue swelling. There is no prominent disc space narrowing. Mild anterior osseous lipping at C5-6 is noted which may indicate some degenerative disc disease. There is multilevel facet arthropathy evident. There are no cervical ribs. No osseous lesions. IMPRESSION: Multilevel facet arthropathy. No prominent disc space narrowing. DATA REPOSITORY: RADIATION DOSE DELIVERED:
== END 2024-07-15 01:17 ==
LOC: DI 00:57
PROVIDERS: PCP Family Medicine; Visit Provider Family Medicine
DX: M25.512 Pain in left shoulder (principal); M47.812 Spondylosis without myelopathy or radiculopathy, cervical region
CPT/HCPCS: 72050; 73030

== ENCOUNTER 2025-03-09 02:33 | Outpatient (CLI) | payer MEDICARE, SELFPAY ==
[2025-03-09 08:56] LABS: ALT 21 U/L (10-49); AST 26 U/L (<34); Albumin 4.1 g/dL (3.2-5.0); Alkaline Phosphatase 100 U/L (46-116); Anion Gap 8.4 mmol/L (3-11); BUN 11 mg/dL (9-23); Bilirubin, Total 0.7 mg/dL (0.2-1.2); CO2 30.6 mmol/L (20.0-31.0); Calcium 9.1 mg/dL (8.3-10.6); Chloride 105 mmol/L (98-107); Glucose 103 mg/dL (74-106); Potassium 4.4 mmol/L (3.5-5.1); Sodium 144 mmol/L (136-145); Total Protein 7.1 g/dL (5.7-8.2)
== END 2025-03-09 02:34 | disposition home or self-care (01) ==
LOC: LBO 02:33
PROVIDERS: PCP Family Medicine; Visit Provider Family Medicine
DX: I10 Essential (primary) hypertension (principal)
CPT/HCPCS: 36415; 80053